=== PATIENT | male | born 1930 | race Caucasian/White ===

== ENCOUNTER 2016-11-22 11:04 | Inpatient (IN) | payer MEDICARE, OTHER ==
[~2016-11-22] VITALS: Ht 165.1 cm; Wt 97.1 kg
[2016-11-22] VITALS (17 sets, daily range): BP systolic 104–146; BP diastolic 48–66
[2016-11-22 11:29] LABS: BASOPHILS % (AUTO) 0.8 % (0.0-2.0); EOSINOPHILS % (AUTO) 0.9 % (0.0-7.0); LYMPHOCYTES # (AUTO) 0.8 K/uL (20.0-40.0); MEAN CORPUSCULAR HEMOGLOBIN 31.4 uug (23.8-33.4); MEAN CORPUSCULAR HGB CONC 35 g/dL (32.5-36.3); MONOCYTES # (AUTO) 0.3 K/uL (2.0-10.0); MONOCYTES % (AUTO) 15.1 % (0.0-11.0); NEUTROPHILS % (AUTO) 46.2 % (38.5-71.5); PLATELET COUNT (AUTO) 98 K/uL (152-348); RED CELL DISTRIBUTION WIDTH 16.6 % (12.1-16.2); WHITE BLOOD COUNT (AUTO) 2.1 K/uL (3.6-10.2)
[2016-11-22 11:36] LABS: CALCIUM 9.2 mg/dL (8.5-10.1); POTASSIUM 4.7 mmol/L (3.5-5.1)
[2016-11-22 11:37] LABS: CREATININE 2.6 mg/dL (0.6-1.3)
[2016-11-22 11:42] LABS: ALBUMIN 3.6 g/dL (3.4-5.0); BILIRUBIN,TOTAL 0.7 mg/dL (0.2-1.0); TOTAL PROTEIN, SERUM 7.7 g/dL (6.4-8.2)
[2016-11-22 11:52] LABS: RED BLOOD CELL COUNT(AUTO) 2.01 MIL/uL (4.06-5.63)
[2016-11-22 11:54] LABS: HEMATOCRIT 18.3 % (36.7-47.1); HEMOGLOBIN 6.3 g/dL (12.5-16.3)
[2016-11-22 12:01] LABS: EOSINOPHILS % (MANUAL) 2 % (0-8); LYMPHOCYTES % (MANUAL) 34 % (20-40); MONOCYTES % (MANUAL) 16 % (2-10); NEUTROPHILS % (MANUAL) 48 % (42-75)
[2016-11-22 12:02] LABS: ANISOCYTOSIS 1+; PLATELET ESTIMATE SLIGHT DECREASED
[2016-11-22] MEDS ORDERED: TRAMADOL HCL 50 MG TABLET PO PRN ×2 (12:15→13:00)
[2016-11-22] MEDS ORDERED: ONDANSETRON 4 MG/2 ML VIAL IV PRN (12:15)
[2016-11-22] MEDS ORDERED: ALBUTEROL SULFATE 2.5 MG/3 ML NEBU NEB PRN (12:15)
[2016-11-22] MEDS ORDERED: ACETAMINOPHEN 325 MG TABLET PO PRN (12:15)
[2016-11-22] MEDS ORDERED: FILGRASTIM 300 MCG/ML VIAL SUBCUT ONE (13:00)
[2016-11-22] MEDS ORDERED: TBO-FILGRASTIM 300 MCG/0.5 ML SYRINGE SQ ONE (13:15)
[2016-11-22] MEDS: FUROSEMIDE 20 MG/2 ML VIAL IV PRN (17:15)
[2016-11-23] VITALS (7 sets, daily range): BP systolic 116–141; BP diastolic 47–64
[2016-11-23] MEDS: FUROSEMIDE 20 MG/2 ML VIAL IV PRN (00:15)
[2016-11-23] MEDS ORDERED: TEMAZEPAM 7.5 MG CAPSULE ONE (01:21)
[2016-11-23] MEDS ORDERED: TEMAZEPAM 7.5 MG CAPSULE PO PRN (01:30)
[2016-11-23 06:51] LABS: HEMATOCRIT 24.8 % (36.7-47.1); HEMOGLOBIN 8.9 g/dL (12.5-16.3); MEAN CORPUSCULAR HEMOGLOBIN 32.8 uug (23.8-33.4); MEAN CORPUSCULAR HGB CONC 36 g/dL (32.5-36.3); PLATELET COUNT (AUTO) 83 K/uL (152-348); RED BLOOD CELL COUNT(AUTO) 2.72 MIL/uL (4.06-5.63); RED CELL DISTRIBUTION WIDTH 14.6 % (12.1-16.2)
[2016-11-23] MEDS ORDERED: ALPRAZOLAM 0.5 MG TABLET PO ONE (09:30)
[2016-11-23 12:14] LABS: EOSINOPHILS % (MANUAL) 1 % (0-8); LYMPHOCYTES % (MANUAL) 20 % (20-40); MONOCYTES % (MANUAL) 18 % (2-10); NEUTROPHILS % (MANUAL) 61 % (42-75); PLATELET ESTIMATE DECREASED
[2016-11-23] MEDS ORDERED: MELATONIN 3 MG TABLET PO SCH (21:00)
== END 2016-11-23 14:30 | disposition hospice, home (50) | DRG 812 ==
LOC: ER 11:04 → TELE 11:32 → MED 12:35
PROVIDERS: ADMIT Internal Medicine
PROC: 30233N1 Transfusion of Nonautologous Red Blood Cells into Peripheral Vein, Percutaneous Approach (ICD-10-PCS; principal; 2016-11-22)
DX: D46.9 Myelodysplastic syndrome, unspecified (principal); D61.818 Other pancytopenia; D68.59 Other primary thrombophilia; I13.0 Hypertensive heart and chronic kidney disease with heart failure and stage 1 through stage 4 chronic kidney disease, or unspecified chronic kidney disease; I50.42 Chronic combined systolic (congestive) and diastolic (congestive) heart failure; D63.0 Anemia in neoplastic disease; E03.9 Hypothyroidism, unspecified; E11.22 Type 2 diabetes mellitus with diabetic chronic kidney disease; I25.5 Ischemic cardiomyopathy; I73.9 Peripheral vascular disease, unspecified; N18.9 Chronic kidney disease, unspecified; I25.10 Atherosclerotic heart disease of native coronary artery without angina pectoris; E78.5 Hyperlipidemia, unspecified; E11.65 Type 2 diabetes mellitus with hyperglycemia; I25.2 Old myocardial infarction; I65.22 Occlusion and stenosis of left carotid artery; Z85.46 Personal history of malignant neoplasm of prostate; Z51.5 Encounter for palliative care; H40.9 Unspecified glaucoma; H35.30 Unspecified macular degeneration
CPT/HCPCS: 36415; 85025; 86850; 86900; 86901; 86920; A4663; J1447; J1940; J7050; P9016-BL; P9021

== ENCOUNTER 2016-12-16 11:31 | Inpatient (IN) | payer MEDICARE, OTHER ==
[~2016-12-16] VITALS: Ht 157.5 cm; Wt 99.8 kg
[2016-12-16] VITALS (26 sets, daily range): BP systolic 118–153; BP diastolic 45–82
--- NOTE | 2016-12-16 12:08 | NUR ---
Per Dr Mejia she has spoken with Dr Neri and pt may be trans to m/s floor. Pt property management form completed, pt's family stated they will take all of pt's belongings home. SBAR report given to Iliana GUEVARA via telephone.
[2016-12-16 12:13] LABS: BASOPHILS % (AUTO) 0.3 % (0.0-2.0); EOSINOPHILS % (AUTO) 0.6 % (0.0-7.0); LYMPHOCYTES # (AUTO) 0.9 K/UL (0.8-4.8); LYMPHOCYTES % (AUTO) 29.2 % (20.5-51.5); MEAN CORPUSCULAR HEMOGLOBIN 30.8 UUG (27.0-31.0); MEAN CORPUSCULAR HGB CONC 35 g/dL (32.0-37.0); MEAN CORPUSCULAR VOLUME 89.2 FL (82.0-92.0); MONOCYTES # (AUTO) 0.6 K/UL (0.1-1.30); MONOCYTES % (AUTO) 19.3 % (0.0-11.0); NEUTROPHILS # (AUTO) 1.7 K/UL (1.8-8.9); NEUTROPHILS % (AUTO) 50.6 % (38.5-71.5); PLATELET COUNT (AUTO) 64 K/UL (150-450); RED CELL DISTRIBUTION WIDTH 14.3 % (11.5-14.5); WHITE BLOOD COUNT (AUTO) 3.2 K/UL (4.0-11.2)
[2016-12-16 12:14] LABS: CALCIUM 8.5 mg/dL (8.5-10.1); POTASSIUM 4.2 mmol/L (3.5-5.1)
[2016-12-16 12:19] LABS: HEMOGLOBIN 6.3 G/DL (14.0-18.0); RED BLOOD CELL COUNT(AUTO) 2.05 MIL/UL (4.7-6.1)
[2016-12-16 12:20] LABS: ALBUMIN 3.2 g/dL (3.4-5.0); BILIRUBIN,TOTAL 0.4 mg/dL (0.2-1.0); HEMATOCRIT 18.3 % (40-50); TOTAL PROTEIN, SERUM 7.6 g/dL (6.4-8.2)
[2016-12-16 12:21] LABS: CREATININE 2.1 mg/dL (0.6-1.3)
--- NOTE | 2016-12-16 12:31 | NUR ---
Pt trans to m/s floor , NAD noted.
--- NOTE | 2016-12-16 12:38 | NUR ---
RECEIVED ALERT RESPONSIVE, ORIENTED TO TIME AND PLACE, AND SON AT BEDSIDE. PATIENT DENIES ANY PAIN OR DISCOMFORT ORDERS CARRIED OUT
[2016-12-16] MEDS ORDERED: BUSP7.5T5 PO (12:47)
[2016-12-16] MEDS ORDERED: VALS320T13 PO (12:47)
[2016-12-16] MEDS ORDERED: LEVO50TA8 PO (12:47)
[2016-12-16] MEDS ORDERED: TORS100T15 PO (12:47)
[2016-12-16] MEDS ORDERED: SILO8CAP PO (12:47)
[2016-12-16] MEDS ORDERED: DOXA8TAB79 PO (12:47)
[2016-12-16] MEDS ORDERED: MULT1TAB11 PO (12:47)
[2016-12-16] MEDS ORDERED: MUPI22OI TP (12:47)
[2016-12-16] MEDS ORDERED: BLOO-170 IN (12:47)
[2016-12-16] MEDS ORDERED: [UNRECOGNIZED DRUG - CODE] PO (12:47)
[2016-12-16] MEDS ORDERED: GABA-534 PO (12:47)
[2016-12-16] MEDS ORDERED: OMEG1CAP40 PO (12:47)
[2016-12-16] MEDS ORDERED: ASPI81TA31 PO (12:47)
[2016-12-16] MEDS ORDERED: FENT1PAT5 TD (12:47)
[2016-12-16] MEDS ORDERED: FERR325T6 PO (12:47)
[2016-12-16] MEDS ORDERED: CHOL100043 PO (12:47)
[2016-12-16] MEDS ORDERED: RANI150T8 PO (12:47)
[2016-12-16] MEDS ORDERED: DICL100G31 TP (12:47)
[2016-12-16] MEDS ORDERED: [UNRECOGNIZED DRUG - CODE] PO (12:47)
[2016-12-16] MEDS ORDERED: ROSU20TA PO (12:47)
[2016-12-16] MEDS ORDERED: LIDO30AD10 TD (12:47)
[2016-12-16] MEDS ORDERED: [UNRECOGNIZED DRUG - OTHER] PO (12:47)
[2016-12-16] MEDS ORDERED: LATA2.5D7 RIGHTEYE (12:47)
[2016-12-16 13:44] LABS: BAND % (MANUAL) 4 % (0-10); LYMPHOCYTES % (MANUAL) 27 % (20-40); MONOCYTES % (MANUAL) 22 % (2-10); NEUTROPHILS % (MANUAL) 47 % (42-75)
[2016-12-16 13:45] LABS: PLATELET ESTIMATE MODERATELY DECREASED
[2016-12-16 13:46] LABS: ANISOCYTOSIS 1+; OVALOCYTES 1+; TEAR DROP CELLS 1+
--- NOTE | 2016-12-16 14:00 | NUR ---
FIRST UNIT PACKED CELLS BEGUN
[2016-12-16] MEDS: Z GUARD REMEDY PASTE 57 GM TUBE TOP SCH (14:45)
--- NOTE | 2016-12-16 16:30 | NUR ---
FIRST UNIT PACKED CELLS ABSORBED WITHOUT ILL EFFECT
--- NOTE | 2016-12-16 16:45 | NUR ---
SECOND UNIT PACKED CELLS ADDED
--- NOTE | 2016-12-16 18:26 | NUR ---
dr argueta visiting
--- NOTE | 2016-12-16 18:34 | NUR ---
STABLE ON Q 1 HOUR ROUNDS ALL NEEDS MET
--- NOTE | 2016-12-16 19:08 | NUR ---
SECOND UNIT PACKED CELLS ABSORBED WITHOUT ILL EFFECT
--- NOTE | 2016-12-16 19:10 | NUR ---
PATIENT AWAKE WITH EPISODES OF RESTLESSNESS, AND AGITATION, ATTEND ALL NEEDS, NO SOB NO CHEST PAIN, NO ASE NOTED FROM BLOOD TRANSFUSION GIVEN BY DAY SHIFTS. AWAITING FOR ORDERS FROM MD. ROGERS TO MONITOR.
[2016-12-16] MEDS ORDERED: VITAMIN E CREAM 56.7 GM JAR TP PRN (21:00)
[2016-12-16] MEDS ORDERED: LORAZEPAM 2 MG/1 ML VIAL IV PRN (21:15)
[2016-12-16] MEDS ORDERED: FUROSEMIDE 20 MG/2 ML VIAL IV ONE (21:15)
--- NOTE | 2016-12-16 21:15 | NUR ---
PATIENT HAS EPISODES OF ANXIETY AND AGITATION, DR. ALDANA NOTIFIED WITH ORDER OF ATIVAN 0.5MG IV, AND TO GIVE 2 UNITS PRBC INFUSED SLOWLY AFTER GIVEN LASIX 20MG IV, NOTIFIED PATIENT AND SIGNIFICANT OTHERS.
[2016-12-16] MEDS ORDERED: LORAZEPAM 2 MG/1 ML VIAL ONE (21:48)
[2016-12-17] VITALS (12 sets, daily range): BP systolic 129–142; BP diastolic 53–63
[2016-12-17] MEDS: Z GUARD REMEDY PASTE 57 GM TUBE TOP SCH ×2 (00:21→08:13)
--- NOTE | 2016-12-17 01:00 | NUR ---
1ST BAG PRBC GIVEN WITH NO ADVERSE REACTION NOTED, NO SOB NO CHEST PAIN NOTED, NO CHEST CONGESTION NOTED. CONT TO MONITOR.
--- NOTE | 2016-12-17 04:51 | NUR ---
2ND PRBC GIVEN WITH NO ADVERSE REACTION NOTED, NO SOB NO CHEST PAIN, CONT MONITOR.
--- NOTE | 2016-12-17 05:06 | NUR ---
PATIENT SLEPT MOST OF THE NIGHT, NO SOB NO CHEST PAIN NOTED, NO ADVERSE REACTION NOTED FROM BLOOD TRANSFUSION, VOIDING FAIRLY, DENIES PAIN AT THIS TIME.
[2016-12-17 06:50] LABS: CALCIUM 8.8 mg/dL (8.5-10.1); MAGNESIUM 2.2 mg/dL (1.8-2.4); POTASSIUM 4.1 mmol/L (3.5-5.1)
[2016-12-17 07:12] LABS: CREATININE 1.9 mg/dL (0.6-1.3)
[2016-12-17 07:20] LABS: BASOPHILS % (AUTO) 0.5 % (0.0-2.0); EOSINOPHILS % (AUTO) 0.3 % (0.0-7.0); LYMPHOCYTES # (AUTO) 0.9 K/UL (0.8-4.8); LYMPHOCYTES % (AUTO) 31.2 % (20.5-51.5); MEAN CORPUSCULAR HEMOGLOBIN 29.2 UUG (27.0-31.0); MEAN CORPUSCULAR HGB CONC 34 g/dL (32.0-37.0); MEAN CORPUSCULAR VOLUME 85.8 FL (82.0-92.0); MONOCYTES # (AUTO) 0.5 K/UL (0.1-1.30); MONOCYTES % (AUTO) 18.4 % (0.0-11.0); NEUTROPHILS # (AUTO) 1.4 K/UL (1.8-8.9); NEUTROPHILS % (AUTO) 49.6 % (38.5-71.5); PLATELET COUNT (AUTO) 60 K/UL (150-450); RED CELL DISTRIBUTION WIDTH 17.1 % (11.5-14.5); WHITE BLOOD COUNT (AUTO) 2.8 K/UL (4.0-11.2)
[2016-12-17 07:27] LABS: HEMOGLOBIN 9.9 G/DL (14.0-18.0); RED BLOOD CELL COUNT(AUTO) 3.38 MIL/UL (4.7-6.1)
--- NOTE | 2016-12-17 09:33 | NUR ---
RECEIVED PATIENT AWAKE ALERT AND ORIENTED WITH HIS AT THE BEDSIDE PATIENT COMPLAINED OF PAIN IN HIS NECK AREA BUT HAS NO PAIN MEDICATIONS ORDERED WARM COMPRESS PROVIDED AND HE STATED THAT HE GOT RELIEF CALLED DR LICONA AND LEFT HIM A MESSAGE.
--- NOTE | 2016-12-17 09:39 | NUR ---
SPOKE WITH DR LICONA RE PAIN IN PATIENTS NECK EARLIER EVEN THOUGH IT WAS RELEAVED HE STATED TO ORDER SOME TYLENOL PRN JUST IN CASE HE NEEDS IT LATER.
[2016-12-17] MEDS ORDERED: ACETAMINOPHEN 325 MG TABLET PO PRN (09:45)
[2016-12-17 10:38] LABS: BAND % (MANUAL) 1 % (0-10); LYMPHOCYTES % (MANUAL) 35 % (20-40); MONOCYTES % (MANUAL) 23 % (2-10); NEUTROPHILS % (MANUAL) 41 % (42-75)
[2016-12-17 10:40] LABS: ANISOCYTOSIS 1+; OVALOCYTES 1+; PLATELET ESTIMATE MODER
[2016-12-17] MEDS ORDERED: FILGRASTIM 300 MCG/ML VIAL SUBCUT ONE (11:45)
[2016-12-17] MEDS ORDERED: TBO-FILGRASTIM 300 MCG/0.5 ML SYRINGE SQ ONE (12:00)
--- NOTE | 2016-12-17 13:30 | NUR ---
ORDER TO DISCHARGE PATIENT HOME RECEIVED AND NOTED FROM DR LICONA.PATIENTS MAURICE IS AT THE BEDSIDE AND STATED THAT SHE WILL CALL THE [facility] TO TAKE HER HOME.AWAITING FOR DR LICONA TO FINALISE THE DISCHARGE.
--- NOTE | 2016-12-17 14:15 | NUR ---
PATIENT DISCHARGED TAKEN DOWN IN OWN W/CHAIR TO THE [facility] AND PICKED UP BY THE I IN SATISFACTORY CONDITION WITH DISCHARGE INSTRUCTIONS AND PATIENT INSTRUCTED TO CALL HIS PRIMARY MD FOR A FOLLOW UP APPOINTMENT WITHIN THE NEXT ONE TO TWO WEEKS AND SHE EXPRESSED UNDERSTANDING.
== END 2016-12-17 14:15 | disposition home or self-care (01) | DRG 812 ==
LOC: ER 11:31 → MED 12:27
PROVIDERS: ADMIT Internal Medicine; ATTEND Internal Medicine
PROC: 30233N1 Transfusion of Nonautologous Red Blood Cells into Peripheral Vein, Percutaneous Approach (ICD-10-PCS; principal; 2016-12-16)
DX: D46.9 Myelodysplastic syndrome, unspecified (principal); I13.0 Hypertensive heart and chronic kidney disease with heart failure and stage 1 through stage 4 chronic kidney disease, or unspecified chronic kidney disease; D68.59 Other primary thrombophilia; I50.42 Chronic combined systolic (congestive) and diastolic (congestive) heart failure; D61.818 Other pancytopenia; N17.9 Acute kidney failure, unspecified; N13.8 Other obstructive and reflux uropathy; N18.4 Chronic kidney disease, stage 4 (severe); E11.22 Type 2 diabetes mellitus with diabetic chronic kidney disease; E11.65 Type 2 diabetes mellitus with hyperglycemia; I25.10 Atherosclerotic heart disease of native coronary artery without angina pectoris; E03.9 Hypothyroidism, unspecified; E78.5 Hyperlipidemia, unspecified; I25.5 Ischemic cardiomyopathy; I65.22 Occlusion and stenosis of left carotid artery; H35.30 Unspecified macular degeneration; Z85.46 Personal history of malignant neoplasm of prostate; Z79.899 Other long term (current) drug therapy; I25.2 Old myocardial infarction; H40.9 Unspecified glaucoma; N40.0 Benign prostatic hyperplasia without lower urinary tract symptoms; D63.0 Anemia in neoplastic disease
CPT/HCPCS: 36415; 71010; 83735; 84100; 85025; 86850; 86900; 86901; 86920; A4663; J1447; J1940; J2060; J7040; P9016-BL; P9021

== ENCOUNTER 2017-01-11 13:47 | Inpatient (IN) | payer MEDICARE, OTHER ==
[~2017-01-11] VITALS: Ht 157.5 cm; Wt 93.0 kg
[2017-01-11] VITALS (12 sets, daily range): BP systolic 103–130; BP diastolic 33–60
[~2017-01-11 13:47] MED LIST: ASPI81TA31 PO; BLOO-170 IN; BUSP7.5T5 PO; CHOL100043 PO; DICL100G31 TP; DOXA8TAB79 PO; FENT1PAT5 TD; FERR325T6 PO; GABA-534 PO; LATA2.5D7 RIGHTEYE; LEVO50TA8 PO; LIDO30AD10 TD; MULT1TAB11 PO; MUPI22OI TP; OMEG1CAP40 PO; RANI150T8 PO; ROSU20TA PO; SILO8CAP PO; TORS100T15 PO; VALS320T13 PO; [UNRECOGNIZED DRUG - CODE] PO; [UNRECOGNIZED DRUG - CODE] PO; [UNRECOGNIZED DRUG - OTHER] PO
[2017-01-11 14:35] LABS: CARBON DIOXIDE 29 mmol/L (21-32); CHLORIDE 105 mmol/L (98-107); GLUCOSE 166 mg/dL (74-106); POTASSIUM 4.2 mmol/L (3.5-5.1); UREA NITROGEN, BLOOD 28 mg/dL (7-18)
[2017-01-11 14:41] LABS: ALANINE AMINOTRANSFERASE 22 U/L (16-63); ALKALINE PHOSPHATASE 52 U/L (50-136); ASPARTATE AMINOTRANSFERASE 26 U/L (15-37); BILIRUBIN,DIRECT 0.1 mg/dL (0.0-0.2); BILIRUBIN,TOTAL 0.3 mg/dL (0.2-1.0); TOTAL PROTEIN, SERUM 6.7 g/dL (6.4-8.2)
[2017-01-11 14:42] LABS: BASOPHILS % (AUTO) 0.3 % (0.0-2.0); MEAN CORPUSCULAR VOLUME 82.3 FL (82.0-92.0); MONOCYTES # (AUTO) 0.4 K/UL (0.1-1.30)
[2017-01-11 14:49] LABS: EOSINOPHILS % (AUTO) 1.3 % (0.0-7.0); LYMPHOCYTES # (AUTO) 0.7 K/UL (0.8-4.8); LYMPHOCYTES % (AUTO) 36.8 % (20.5-51.5); MEAN CORPUSCULAR HEMOGLOBIN 27.7 UUG (27.0-31.0); MEAN CORPUSCULAR HGB CONC 34 g/dL (32.0-37.0); MONOCYTES % (AUTO) 17.9 % (0.0-11.0); NEUTROPHILS # (AUTO) 0.9 K/UL (1.8-8.9); NEUTROPHILS % (AUTO) 43.7 % (38.5-71.5); PLATELET COUNT (AUTO) 62 K/UL (150-450)
[2017-01-11 14:58] LABS: HEMATOCRIT 17.1 % (40-50); HEMOGLOBIN 5.8 G/DL (14.0-18.0); RED BLOOD CELL COUNT(AUTO) 2.08 MIL/UL (4.7-6.1)
[2017-01-11 15:24] LABS: BAND % (MANUAL) 4 % (0-10); EOSINOPHILS % (MANUAL) 2 % (0-8); LYMPHOCYTES % (MANUAL) 40 % (20-40); MONOCYTES % (MANUAL) 16 % (2-10); NEUTROPHILS % (MANUAL) 38 % (42-75)
--- NOTE | 2017-01-11 15:27 | NUR ---
Pt trans to m/s, NAD noted upon transfer.
--- NOTE | 2017-01-11 15:30 | NUR ---
NEW PATIENT FROM ER TO ROOM 210 AWAKE ALERT COOPERATE WELL NO SOB OR PAIN VS TAKEN STABLE ON ASPIRATION AND FALL PRECAUTION CALL GARCIA IN REACH
[2017-01-11] MEDS ORDERED: FUROSEMIDE 20 MG/2 ML VIAL IV PRN (16:15)
[2017-01-11] MEDS ORDERED: MORPHINE SULFATE 2 MG/1 ML DISP.SYRIN IV PRN (16:15)
[2017-01-11] MEDS ORDERED: ALBUTEROL SULFATE 2.5 MG/3 ML NEBU NEB PRN (16:15)
[2017-01-11] MEDS ORDERED: MUPIROCIN 2% OINT 22 GM TUBE TP SCH (17:00)
--- NOTE | 2017-01-11 17:05 | NUR ---
START BLOOD TRANSFUSION 1 ST UNIT DARRIN PROCEDURE WELL NO REACTION VS STABLE
--- NOTE | 2017-01-11 18:00 | NUR ---
CONDITION STABLE NO RESPIRATORY DISTRESS NO SOB PAIN UNDER CONTROL SAFETY MEASURE PROVIDED CALL LIGHT WITHIN REACH AND DARRIN BLOOD TRANSFUSION WELL NO REACTION NOTED VS STABLE
--- NOTE | 2017-01-11 19:45 | NUR ---
BLOOD TRANSFUSION COMPLETE NO REACTION VS STABLE
[2017-01-11] MEDS: DOCUSATE SODIUM 100 MG CAPSULE PO SCH ×2 (20:33→21:00)
[2017-01-11] MEDS: LATANOPROST OPHT DROP 2.5 ML BOTTLE RIGHTEYE SCH (20:33)
[2017-01-11] MEDS ORDERED: buPROPion 75 MG TABLET PO SCH (21:00)
[2017-01-11] MEDS: LORAZEPAM 2 MG/1 ML VIAL IV PRN (21:43)
[2017-01-12] VITALS (20 sets, daily range): BP systolic 97–151; BP diastolic 35–84
[2017-01-12] MEDS: ACETAMINOPHEN 325 MG TABLET PO PRN ×2 (04:01→19:56)
--- NOTE | 2017-01-12 04:19 | NUR ---
2 UNITS OF PRBC COMPLETED. NO A/E NOTED. V/S CHECKED AND RECORDED. SLEPT INTERMITTENTLY. C/O LOU, GIVEN TYLENOL PRESCRIBED, WILL MONITOR. Addendum: 01/12/17 at 0424 by ERI LITTLE RN 3 UNITS TOTAL TRANSFUSED ORDERED.
--- NOTE | 2017-01-12 05:49 | NUR ---
MS NICK. WITNESSED BY CHARGE NURSE CONG. PT REQUESTED LAST NIGHT BUT SUDDENLY CHANGED HIS MIND.
[2017-01-12] MEDS: PANTOPRAZOLE SODIUM 40 MG TABLET.DR PO SCH (06:05)
[2017-01-12 06:51] LABS: MEAN CORPUSCULAR HEMOGLOBIN 28.5 UUG (27.0-31.0); MEAN CORPUSCULAR HGB CONC 34 g/dL (32.0-37.0); MEAN CORPUSCULAR VOLUME 83.2 FL (82.0-92.0); PLATELET COUNT (AUTO) 62 K/UL (150-450)
[2017-01-12 07:32] LABS: WHITE BLOOD COUNT (AUTO) 2.7 K/UL (4.0-11.2)
[2017-01-12 07:34] LABS: HEMOGLOBIN 8.1 G/DL (14.0-18.0); RED BLOOD CELL COUNT(AUTO) 2.85 MIL/UL (4.7-6.1)
[2017-01-12 07:40] LABS: HEMATOCRIT 23.7 % (40-50)
--- NOTE | 2017-01-12 07:40 | NUR ---
CALL RECEIVED FROM THE LAB H/H IS 8.08/27.7 DR LICONA NOTIFIED WITH NO NEW ORDERS AT THIS TIME.PATIENT IS AWAKE ALERT AND VERBALLY RESPONSIVE. IS AT THE BEDSIDE AND ASSISTING WITH HIS NEEDS AT THIS TIME.HE IS ON ROOM AIR WITH NO RESPIRATORY DISTRESS .
[2017-01-12] MEDS: GABAPENTIN 300 MG CAPSULE PO SCH (08:19)
[2017-01-12] MEDS: TORSEMIDE 20 MG TABLET PO SCH (08:19)
[2017-01-12] MEDS: FLUOXETINE HCL 10 MG CAPSULE PO SCH (08:19)
[2017-01-12] MEDS ORDERED: LIDOCAINE 5% PATCH TD SCH (09:00)
[2017-01-12] MEDS ORDERED: TORSEMIDE 100 MG TABLET PO SCH (09:00)
[2017-01-12] MEDS ORDERED: ASPIRIN 81 MG TAB.CHEW PO SCH (09:00)
--- NOTE | 2017-01-12 09:46 | NUR ---
NEW ORDERS FOR 2 UNITS OF PRBC NOTED AND CARRIED OUT PATIENTS IS AT THE BEDSIDE AND AWARE.
[2017-01-12] MEDS ORDERED: FLUO10CA26 PO (09:55)
[2017-01-12] MEDS ORDERED: FUROSEMIDE 20 MG/2 ML VIAL IV PRN (10:00)
[2017-01-12 10:03] LABS: BAND % (MANUAL) 2 % (0-10); EOSINOPHILS % (MANUAL) 2 % (0-8); LYMPHOCYTES % (MANUAL) 45 % (20-40); MONOCYTES % (MANUAL) 19 % (2-10); NEUTROPHILS % (MANUAL) 32 % (42-75)
--- NOTE | 2017-01-12 15:30 | NUR ---
IV SITE ON HIS LEFT HAND INFILTERATED RESTARTED TO HIS RIGHT AC AFTER 2 ATTEMPTS AND PATIENT TOLERATED PROCEDURE WELL.
--- NOTE | 2017-01-12 16:10 | NUR ---
FIRST UNIT PRBC STARTED ORDERED WITH NO ADVERSE OR ALLERGIC REACTIONS AT THIS TIME WILL OBSERVE.
--- NOTE | 2017-01-12 18:00 | NUR ---
PATIENT REMAINS ON BLOOD TRANSFUSSION ORDERED WITH NO ADVERSE OR ALLERGIC REACTIONS AT THIS TIME.
--- NOTE | 2017-01-12 19:30 | NUR ---
BLOOD TRANSFUSSION COMPLETED ORDERED WITH NO ADVERSE OR ALLERGIC REACTIONS AT THIS TIME
--- NOTE | 2017-01-12 20:00 | NUR ---
PATIENT AWAKE IN BED WITH VISITOR AT BEDSIDE. PATIENT IS A/O X4. DENIES PAIN OR DISCOMFORT. NO RESP. DISTRESS NOTED. VS WNL. H/L INTACT AND PATENT, NOTED TO RIGHT UPPER ARM #20 GAUGE. 2ND UNIT OF PRBC STARTED ORDERED. WILL CONTINUE TO MONITOR. CALL LIGHT IN REACH. ALL NEEDS ATTENDED.
[2017-01-12] MEDS: DOCUSATE SODIUM 100 MG CAPSULE PO SCH (20:08)
[2017-01-12] MEDS: LATANOPROST OPHT DROP 2.5 ML BOTTLE RIGHTEYE SCH (20:08)
--- NOTE | 2017-01-12 20:15 | NUR ---
BLOOD TRANSFUSION INFUSING WELL. NO REACTION NOTED. VSS. WILL CONTINUE TO MONITOR.
[2017-01-12] MEDS: LORAZEPAM 2 MG/1 ML VIAL IV PRN (21:01)
--- NOTE | 2017-01-12 22:25 | NUR ---
TRANSFUSION FINISHED. VSS. NO REACTION NOTED. ALL NEEDS ATTENDED. CALL LIGHT IN REACH.
[2017-01-13] VITALS (8 sets, daily range): BP systolic 118–137; BP diastolic 48–60
[2017-01-13] MEDS: PANTOPRAZOLE SODIUM 40 MG TABLET.DR PO SCH (06:10)
--- NOTE | 2017-01-13 06:24 | NUR ---
PATIENT ASLEEP IN BED. SLEPT AT INTERVALS. FAMILY AT BEDSIDE. CALL LIGHT IN REACH. ALL NEEDS ATTENDED. WILL CONTINUE TO MONITOR.
[2017-01-13 07:24] LABS: MEAN CORPUSCULAR HEMOGLOBIN 28.8 UUG (27.0-31.0); MEAN CORPUSCULAR HGB CONC 35 g/dL (32.0-37.0); MEAN CORPUSCULAR VOLUME 83.1 FL (82.0-92.0); PLATELET COUNT (AUTO) 66 K/UL (150-450); WHITE BLOOD COUNT (AUTO) 3.1 K/UL (4.0-11.2)
[2017-01-13 07:37] LABS: HEMATOCRIT 27.5 % (40-50); HEMOGLOBIN 9.6 G/DL (14.0-18.0); RED BLOOD CELL COUNT(AUTO) 3.31 MIL/UL (4.7-6.1)
[2017-01-13] MEDS ORDERED: FENTANYL 50 MCG/HR PATCH TD SCH (09:00)
--- NOTE | 2017-01-13 09:00 | NUR ---
CALL RECEIVED FROM DR LICONA STATED TO TRANSFUSE ONE MORE UNIT OF BLOOD TODAY AND NOTED.
--- NOTE | 2017-01-13 09:10 | NUR ---
PATIENT IS UP ON THE COMMODE IN HIS ROOM STRAINING TO HAVE A BOWEL MOVEMENT BUT ONLY ABLE TO HAVE A FEW DRY SMALL BALLED SKYBALLUM DIGITAL CHECK REVEALED THAT PATIENT IS CONSTIPATED SO I CALLED DR LICONA AND NOTIFIED HIM WITH NEW ORDERS AND NOTED.
[2017-01-13] MEDS ORDERED: FLEET ENEMA 133 ML BOTTLE RC PRN (09:15)
[2017-01-13] MEDS ORDERED: BISACODYL 10 MG SUPP.RECT RC PRN (09:15)
--- NOTE | 2017-01-13 09:15 | NUR ---
PATIENT MEDICATED WITH DULCOLAX SUPPOSITORY AND PER DR LICONA TO WAIT FOR ABOUT 2 HOURS AND IF ELIMINATION NOT ACHIEVED THEN TO GIVE THE PATIENT THE FLEETS ENEMA.WILL CONTINUE TO OBSERVE.
[2017-01-13] MEDS: GABAPENTIN 300 MG CAPSULE PO SCH (09:41)
[2017-01-13] MEDS: FLUOXETINE HCL 10 MG CAPSULE PO SCH (09:41)
[2017-01-13] MEDS: TORSEMIDE 20 MG TABLET PO SCH (09:41)
--- NOTE | 2017-01-13 10:30 | NUR ---
DULCOLAX SUPPOSITORY IS EFFECTIVE PATIENT MOVED HIS BOWEL ASSISTED WITH CLEAN UP AND BACK INTO BED.
[2017-01-13] MEDS ORDERED: ENOXAPARIN SODIUM 30 MG/0.3 ML DISP.SYRIN SUBCUT SCH (12:00)
--- NOTE | 2017-01-13 12:05 | NUR ---
BLOOD TRANSFUSSION STARTED ORDERED AND WILL OBSERVE FOR ADVERSE OR ALLERGIC REACTIONS.
--- NOTE | 2017-01-13 12:10 | NUR ---
The patient's discharge plan is to return back home [[address], [place] [address]] once medically cleared. Spoke to his [id number], Cynthia, who confirmed that they will pick him up via private car. She is requesting a call once the paperwork is done. Updated his RN, Jeannie, about his discharge plan.
[2017-01-13 12:17] LABS: BAND % (MANUAL) 2 % (0-10); EOSINOPHILS % (MANUAL) 1 % (0-8); LYMPHOCYTES % (MANUAL) 51 % (20-40); MONOCYTES % (MANUAL) 17 % (2-10); NEUTROPHILS % (MANUAL) 29 % (42-75)
--- NOTE | 2017-01-13 13:37 | NUR ---
REMAIN ON BLOOD TRANSFUSSION ORDERED WITH NO ADVERSE OR ALLERGIC REACTIONS AT THIS TIME WILL CONTINUE TO OBSERVE.
[2017-01-13] MEDS: LORAZEPAM 2 MG/1 ML VIAL IV PRN (16:54)
--- NOTE | 2017-01-13 16:54 | NUR ---
PATIENT IS GETTING AGITATED AND RESTLESS HIS SON AND DAUGHTER IN LAW HERE PATIENT HAS AN ORDER FOR ATIVAN SO ATIVAN GIVEN ORDERED DR LICONA AWARE PATIENT IS BEING PREPPED FOR DISCHARGE.
--- NOTE | 2017-01-13 17:15 | NUR ---
BLOOD TRANSFUSSION COMPLETED ORDERED WITH NO ADVERSE OR ALLERGIC REACTIONS AT THIS TIME.
--- NOTE | 2017-01-13 18:15 | NUR ---
PATIENT DISCHARGED PICKED UP BY HIS SIGNIFICANT OTHER MAURICE IN SATISFACTORY CONDITION WITH DISCHARGE INSTRUCTIONS AND MAURICE INSTRUCTED TO CONTINUE WITH PATIENT SAME MEDICATIONS BEFORE AND TO CALL FOR A FOLLOW UP APPOINTMENT WITH HIS PRIMARY DOCTOR WITHIN THE NEXT ONE TO TWO WEEKS AND SHE EXPRESSED UNDERSTANDING.MAURICE CALLED FOR A WHEEL CHAIR VAN AND TOOK THE PATIENT IN HIS OWN W/CHAIR AND STATED WILL SEAT IN THE LOBBY TO WAIT FOR THE VAN.
== END 2017-01-13 18:15 | disposition home or self-care (01) | DRG 291 ==
LOC: ER 13:47 → MED 15:02
PROVIDERS: ADMIT Internal Medicine; ATTEND Internal Medicine
PROC: 30233N1 Transfusion of Nonautologous Red Blood Cells into Peripheral Vein, Percutaneous Approach (ICD-10-PCS; principal; 2017-01-11)
DX: I13.0 Hypertensive heart and chronic kidney disease with heart failure and stage 1 through stage 4 chronic kidney disease, or unspecified chronic kidney disease (principal); I50.43 Acute on chronic combined systolic (congestive) and diastolic (congestive) heart failure; D61.818 Other pancytopenia; N18.4 Chronic kidney disease, stage 4 (severe); D68.59 Other primary thrombophilia; D46.9 Myelodysplastic syndrome, unspecified; I25.5 Ischemic cardiomyopathy; Z85.46 Personal history of malignant neoplasm of prostate; G89.4 Chronic pain syndrome; M89.9 Disorder of bone, unspecified; E03.9 Hypothyroidism, unspecified; H35.30 Unspecified macular degeneration; E78.5 Hyperlipidemia, unspecified; M17.0 Bilateral primary osteoarthritis of knee; Z74.09 Other reduced mobility; Z99.3 Dependence on wheelchair; E11.65 Type 2 diabetes mellitus with hyperglycemia; I65.22 Occlusion and stenosis of left carotid artery; H40.9 Unspecified glaucoma; I25.2 Old myocardial infarction; E11.51 Type 2 diabetes mellitus with diabetic peripheral angiopathy without gangrene; I25.10 Atherosclerotic heart disease of native coronary artery without angina pectoris; D63.1 Anemia in chronic kidney disease; E11.22 Type 2 diabetes mellitus with diabetic chronic kidney disease; Z79.82 Long term (current) use of aspirin; Z79.899 Other long term (current) drug therapy
CPT/HCPCS: 36415; 70030-TC; 82746; 83550; 85025; 85730; 86850; 86900; 86901; 86920; 93005; A4663; J1940; J2060; J2270; J7040; P9016-BL; P9021